=== PATIENT | female | born 1995 | race Caucasian/White ===

== ENCOUNTER 2020-02-26 20:13 | Observation (INO) | payer OTHER, SELFPAY ==
--- NOTE | 2020-02-26 20:13 | OBADM ---
This patient, Dedeee Parrish, admitted to the OB room Labor/Delivery/Recovery 106 for observation. Patient/family oriented to hospital policies and general routines including ID bracelet, bed and alarms, visiting hours, pain management, procedures, bathroom and other care routines, personal items, smoking policy, room service/diet, and visiting hours. Patient/Family are encouraged to report perceived risks to care and to ask questions if they do not understand what they are told or what they should do.
[2020-02-26 22:08] VITALS: BMI 25.2
--- NOTE | 2020-03-03 07:29 | PM.OBTRLD ---
OB - Triage/Final Diagnosis Visit Information Date of evaluation: 02/26/20 Reason for evaluation: threatened labor
== END 2020-02-26 22:28 | disposition home or self-care (01) ==
PROVIDERS: Admitting Provider Student in an Organized Health Care Education/Training Program; PCP Family Medicine; Visit Provider Student in an Organized Health Care Education/Training Program
DX: O47.03 False labor before 37 completed weeks of gestation, third trimester (principal); Z3A.36 36 weeks gestation of pregnancy
CPT/HCPCS: G0378; G0379

== ENCOUNTER 2020-03-05 02:24 | Observation (INO) | payer OTHER, SELFPAY ==
[2020-03-05 06:12] VITALS: BMI 25.5
--- NOTE | 2020-03-05 06:14 | OBADM ---
This patient, Deedee Parrish, admitted to the OB room Labor/Delivery/Recovery 107 for observation. Patient/family oriented to hospital policies and general routines including ID bracelet, bed and alarms, visiting hours, pain management, procedures, bathroom and other care routines, personal items, smoking policy, room service/diet, and visiting hours. Patient/Family are encouraged to report perceived risks to care and to ask questions if they do not understand what they are told or what they should do.
--- NOTE | 2020-03-05 06:22 | PC.NURSE ---
SEE OBIX FOR CHARTING
--- NOTE | 2020-03-18 13:08 | PM.OBTRLD ---
OB - Triage/Final Diagnosis Final Diagnosis (1) False labor: Code(s): O47.9 - False labor, unspecified Status: Acute
== END 2020-03-05 05:56 | disposition home or self-care (01) ==
PROVIDERS: Admitting Provider Obstetrics & Gynecology; PCP Family Medicine; Visit Provider Obstetrics & Gynecology
DX: O47.03 False labor before 37 completed weeks of gestation, third trimester (principal); Z3A.37 37 weeks gestation of pregnancy
CPT/HCPCS: G0378; G0379

== ENCOUNTER 2020-03-05 08:49 | Inpatient (IN) | payer OTHER, SELFPAY ==
[2020-02-19 14:32] VITALS: BMI 24.5
[2020-03-05] VITALS (62 sets, daily range): BP systolic 81–138; BP diastolic 51–93; PULSE 70–124; RESP 18; TEMP 36.6–37.1; O2SAT 100
[2020-03-05] MEDS: LACTATED RINGERS 1,000 ML 125 ML IV CONT ×2 (09:22→09:52)
[2020-03-05 09:25] LABS: Basophils Absolute Auto 0.1 K/mm3 (0.0-0.1); Basophils Percent Auto 0.4 % (0.2-1.2); Eosinophils Absolute Auto 0.1 K/mm3 (0-0.3); Eosinophils Percent Auto 0.9 % (0-4.4); Hematocrit 35.1 % (37.0-47.0); Immature Granulocyte Absolute 0.18 K/mm3 (0.00-0.031); Immature Granulocyte Percent A 1.4 % (0-0.5); Lymphocytes Absolute Auto 2.58 K/mm3 (0.9-3.2); Lymphocytes Percent Auto 20.1 % (18.3-44.2); Mean Corpuscular HGB Conc 34.2 g/dl (32-36); Mean Corpuscular Hemoglobin 28.3 pg (26-34); Mean Corpuscular Volume 82.8 fl (80-100); Mean Platelet Volume 10.1 fl (7.4-10.4); Monocytes Absolute Auto 0.8 K/mm3 (0.1-0.6); Monocytes Percent Auto 6.4 % (2.6-8.5); Neutrophils Absolute Auto 9.1 K/mm3 (1.3-6.7); Neutrophils Percent Auto 70.8 % (45.5-73.1); Platelet Count Result 325 k/mm3 (150-375); Red Blood Count 4.24 M/mm3 (4.2-5.4); Red Cell Distribution Width 13.6 % (11.5-14.5); White Blood Count 12.8 K/mm3 (4.5-10.0)
--- NOTE | 2020-03-05 09:27 | LDADM ---
This patient, Deedee Parrish, was admitted to Labor/Delivery/Recovery 107 on 03/05/20 at 08:49. Plans for labor, pain management and were discussed with patient. Patient/family oriented to hospital policies and general routines including ID bracelet, bed and alarms, visiting hours, pain management, procedures, bathroom and other care routines, personal items, smoking policy, room service/diet and guest tray routines, infant security routines, and visiting hours. Patient/Family are encouraged to report perceived risks to care and to ask questions if they do not understand what they are told or what they should do. See OBIX for further documentation.
--- NOTE | 2020-03-05 10:54 | WPDANESEPP ---
Anes - Eval Pre Procedure Procedure: labor epidural Date/Time: 03/05/20 10:54 Surgeon: Cole Preop Diagnosis: Pain during labor Pre Op Diagnosis: labor Patient Data Age: 24 Gender: F Height: 5 ft 7 in Weight: 71 kg Last Vital Signs Temp 36.7 C 03/05/20 09:30 Pulse 78 03/05/20 10:45 BP 115/68 03/05/20 10:45 Pulse Ox 100 03/05/20 10:39 Allergies Allergy/AdvReac Type Severity Reaction Status Date / Time No Known Allergies Allergy Verified 02/19/20 14:45 Home Medications Medication Instructions Recorded Confirmed Type PNV cmb#95-ferrous fumarate-FA 1 tablet PO BID 02/19/20 02/19/20 History [] Laboratory Tests 03/05/20 03/05/20 09:19 09:19 WBC 12.8 K/mm3 H K/mm3 (4.5-10.0) RBC 4.24 M/mm3 M/mm3 (4.2-5.4) Hgb 12.0 g/dL g/dL (12.0-15.0) Hct 35.1 % L % (37.0-47.0) MCV 82.8 fl fl (80-100) MCH 28.3 pg pg (26-34) MCHC 34.2 g/dl g/dl (32-36) RDW 13.6 % % (11.5-14.5) Plt Count 325 k/mm3 k/mm3 (150-375) MPV 10.1 fl fl (7.4-10.4) Immature Gran % (Auto) 1.4 % H % (0-0.5) Neut % (Auto) 70.8 % % (45.5-73.1) Lymph % (Auto) 20.1 % % (18.3-44.2) [place] % (Auto) 6.4 % % (2.6-8.5) Eos % (Auto) 0.9 % % (0-4.4) Baso % (Auto) 0.4 % % (0.2-1.2) Lymph # (Auto) 2.58 K/mm3 K/mm3 (0.9-3.2) [place] # (Auto) 0.8 K/mm3 H K/mm3 (0.1-0.6) Eos # (Auto) 0.1 K/mm3 K/mm3 (0-0.3) Baso # (Auto) 0.1 K/mm3 K/mm3 (0.0-0.1) Abs Immat Gran (auto) 0.18 K/mm3 H K/mm3 (0.00-0.031) Absolute Neuts (auto) 9.1 K/mm3 H K/mm3 (1.3-6.7) Absolute Nucleated RBC 0.0 K/mm3 K/mm3 (0.0-0.012) Nucleated RBC % 0.0 % % (0.0-0.2) RPR Pending : gestational age (YARIEL 03/21) Patient hx anesthesia problems: none Family hx anesthesia problems: none PMFSH Family History Family History Grandparent Diabetes mellitus Social History Social History Smoking status: Never smoker Substance use: current Other substance usage details: hx of mj Gender identity (if verbalized by the patient): Female Spiritual care concerns: No Exam Day of Procedure 03/05/20 10:54 Patient weight: normal Heart: regular rate and rhythm Lungs: clear to auscultation and normal air movement Airway: Mallampati scale class II Neurological: alert and oriented
[2020-03-05 11:20] LABS: Rapid Plasma Reagin Non-Reactive (NonReactive)
--- NOTE | 2020-03-05 12:36 | WPDOBADMIT ---
Obstetrics - Admit Note Admission Note: record reviewed. Additions to the history and/or subsequent changes in the physical findings follow. 24 y/o at 37 5/7 weeks here with gush of clear fluid. SROM diagnosed on L&D. Complaining of contractions. GBS neg. AVSS NST reactive TOCO: contractions every 2-3 min ABD soft, nontender, gravid, vertex EXT nontender Cervix 7/80/0 A: IUP at term with SROM / labor. P: Anticipate .
[2020-03-05] MEDS: OXYTOCIN 30 UNITS/NS 500 ML 30 UNITS/500 ML BAG 999 UNITS IV CONT (15:32)
--- NOTE | 2020-03-05 15:46 | PM.OBPRVD ---
OB - Delivery Note Procedure Delivery date: 03/05/20 Procedure: Delivery monitor: external FHT and external uterine Route of delivery: Laceration description: Perineal - 2nd Degree Delivery repair: vicryl (3-0) Specimen: Yes (cord blood) Estimated blood loss (mL): 110 Anesthesia type: Epidural Disposition: PACU Complications: None Narrative: 24 y/o at 37 5/7 weeks gestation who presented to the hospital after a gush of clear fluid and contractions. SROM and labor were diagnosed. She received an epidural for pain control. Her labor progressed and her cervix dilated completely. She pushed with good effort and delivered the infant's head to the perineum. A loose nuchal cord was splinted and the body delivered. The cord was reduced. The nose and mouth were bulb suctioned. After a delay, the cord was clamped and cut. The was handed off the field. Cord blood was collected. The placenta delivered spontaneously and was grossly normal in appearance. The usual 3 vessel cord was noted. A second degree midline perineal laceration was sustained. This was reapproximated using 3 0 Vicryl in the usual layered fashion. Excellent hemostasis resulted as did excellent reapproximation of the normal anatomy. Needle and instrument counts were correct. The patient was taken to recovery room in stable condition. The went to the nursery in stable condition. I was present and scrubbed for the entire delivery. [place] Baby Date of : 03/05/20 Time of : 15:28 Weeks of gestation at delivery: 37 gender: Female Weight (pounds): 5 Weight (ounces): 15 position: Left Occiput Anterior Placenta delivery description: Spontaneous cord vessel description: 3 Vessels and Nuchal Cord score one minute: 9 score five minutes: 9
--- NOTE | 2020-03-05 15:48 | P.DS_ITS ---
DS: Admitting Diagnosis Admitting Diagnosis Admitting Diagnosis: SROM Labor at term DS: Discharge Diagnosis Discharge Diagnosis (1) (normal spontaneous vaginal delivery): Code(s): O80 - Encounter for full-term uncomplicated delivery Status: Acute OB - DS: Summary OB Procedures : None OB Procedures Intrapartum: Spontaneous Vag Delivery OB Procedures: : None DS: Data Data Completed and Pending Labs on day of discharge: Labs from last 24 hours 03/05/20 03/05/20 03/05/20 09:19 09:19 09:19 WBC 12.8 H RBC 4.24 Hgb 12.0 Hct 35.1 L MCV 82.8 MCH 28.3 MCHC 34.2 RDW 13.6 Plt Count 325 MPV 10.1 Immature Gran % (Auto) 1.4 H Neut % (Auto) 70.8 Lymph % (Auto) 20.1 [place] % (Auto) 6.4 Eos % (Auto) 0.9 Baso % (Auto) 0.4 Lymph # (Auto) 2.58 [place] # (Auto) 0.8 H Eos # (Auto) 0.1 Baso # (Auto) 0.1 Abs Immat Gran (auto) 0.18 H Absolute Neuts (auto) 9.1 H Absolute Nucleated RBC 0.0 Nucleated RBC % 0.0 RPR Non-reactive Blood Type O Positive Antibody Screen Negative Discharge Plan Discharge Attending physician on discharge: Cole Discharging Clinician: Israel Galvan Patient Disposition: Home, Self-Care Activity: pelvic rest Diet: regular Discharge Instructions: Call or return if temperature above 100.4? F, increased abdominal pain, increased vaginal bleeding or any new problems. Stand Alone Forms: General Discharge Information Follow-up/Referrals: Israel Galvan MD [Physician] - 6 Weeks Discharge Medications: New ibuprofen 600 mg tablet 600 mg PO Q6H PRN (Reason: cramps) Qty: 30 RF: 0 ferrous sulfate 325 mg (65 mg iron) tablet 325 mg PO DAILY Qty: 30 RF: 0 No Action PNV cmb#95-ferrous fumarate-FA [] 28 mg iron- 800 mcg Tablet 1 tablet PO BID RF: 0 Date of admission: 03/05/20 08:49 Primary Care Provider: Lizette,Brook Admitting Provider: Israel Galvan Attending physician on admission: Israel Galvan
[2020-03-05] MEDS: OXYTOCIN 30 UNITS/NS 500 ML 30 UNITS/500 ML BAG 125 UNITS IV CONT ×2 (15:54→16:11)
[2020-03-05] MEDS: WITCH HAZEL 40 PADS 1 PAD TOPICAL (17:42)
[2020-03-05] MEDS: BENZOCAINE 20% AER SPR (*SP) 56 GM CAN 1 SPRAY TOPICAL (17:42)
--- NOTE | 2020-03-05 19:01 | PC.NURSE ---
Patient transferred to post room #281 via wheel chair. Support person present. Oriented to unit, room, information board, rooming in, admission packet and security measures. Patient verbalizes understanding.
[2020-03-05] MEDS: IBUPROFEN 600 MG TABLET PO (22:54)
[2020-03-06 04:49] LABS: Hematocrit 29.5 % (37.0-47.0); Hemoglobin 9.9 g/dL (12.0-15.0)
[2020-03-06 08:00] VITALS: BP 111/64; PULSE 70; RESP 16; TEMP 36.5; O2SAT 99
--- NOTE | 2020-03-06 08:12 | WPDANLDPN2 ---
Anes-Prog Note L&D Date/Time: 03/06/20 08:12 Comfortable throughout: labor and delivery Neuraxial method: epidural Epidural/Spinal procedure site: clean & non-tender Neuro status: Neuro function grossly intact. Cardiovascular status: normal Respiratory status: normal Airway patency: baseline Mental status: baseline Post-Op hydration status: normal Vital Signs: Last Vital Signs Temp 37.1 C 03/05/20 19:15 Pulse 90 03/05/20 19:15 Resp 18 03/05/20 19:15 BP 108/70 03/05/20 19:15 Pulse Ox 100 03/05/20 19:15 Pain score (VAS): 2 I/O: Intake & Output 03/05/20 03/06/20 03/06/20 23:59 07:59 15:59 Intake Total 2500 Output Total 50 Balance 2450 Patient feedback: Patient satisfied with anesthetic care.
[2020-03-06] MEDS: DOCUSATE SODIUM 100 MG CAPSULE PO ×2 (09:18→18:22)
[2020-03-06] MEDS: IBUPROFEN 600 MG TABLET PO ×2 (09:18→18:21)
[2020-03-06] MEDS: POLYSACCHARIDE IRON COMPLEX 150 MG CAPSULE PO ×2 (09:18→18:22)
[2020-03-06] MEDS: MULTIVIT/MIN/PREN/FOL AC/IRON TABLET 1 TAB PO (09:18)
--- NOTE | 2020-03-06 11:39 | PM.OBPNVD ---
OB - PN: Subj Subjective Date/time seen: 03/06/20 11:39 Narrative: Pain OK. Would like to go home. OB - PN: Obj Data Labs CBC & Chem 7: 03/06/20 03:28 Labs: Laboratory Results - last 24 hr 03/06/20 03:28 Hgb 9.9 L Hct 29.5 L OB - PN A/P Plan Comments: A: PPD#1, doing well. P: Home to f/u 6 weeks. Exam Psych: Other: AVSS ABD soft, nontender, fundus firm EXT nontender
[2020-03-06 19:18] VITALS: BP 110/65; PULSE 77; RESP 18; TEMP 36.6; O2SAT 100
[2020-03-06] MEDS: TETANUS,DIPHTHERIA,AC PERTUSSIS ADULT (0.5 ML) BOOSTRIX IM (19:18)
--- NOTE | 2020-03-07 07:00 | PC.NURSE ---
Patient instructed to view the discharge video Mother & Baby Care, The First Two Weeks online. Patient was given the opportunity and encouraged to ask questions. Patient verbalized understanding of information shared and has been given the mother/baby guide for home reference.
[2020-03-07 07:40] VITALS: BP 120/65; PULSE 67; RESP 16; TEMP 36.8
[2020-03-07] MEDS: IBUPROFEN 600 MG TABLET PO (08:15)
[2020-03-07] MEDS: POLYSACCHARIDE IRON COMPLEX 150 MG CAPSULE PO (08:15)
[2020-03-07] MEDS: MULTIVIT/MIN/PREN/FOL AC/IRON TABLET 1 TAB PO (08:15)
[2020-03-07] MEDS: DOCUSATE SODIUM 100 MG CAPSULE PO (08:15)
--- NOTE | 2020-03-07 10:00 | PM.OBPNVD ---
OB - PN: Subj Subjective Date/time seen: 03/07/20 10:00 Narrative: Pain OK. Would like to go home. OB - PN: Obj Data Labs CBC & Chem 7: 03/06/20 03:28 OB - PN A/P Plan Comments: A: PPD#2, doing well. P: Home to f/u 6 weeks. Exam Psych: Other: AVSS ABD soft, nontender, fundus firm EXT nontender
--- NOTE | 2020-03-07 10:30 | PC.NURSE ---
Mother verbalizes she is able to independently latch with appropriate positioning/alignment. She denies any nipple discomfort, is feeding as required and waking to feed if needed. Infant has had 2 effective feedings in the past 4 hours, and is currently meeting outcomes for weight, output, jaundice and feeding frequencies. Mother states she feels confident to continue effective at home. Reviewed transition to breast milk, signs of adequate intake, and engorgement/relief. Instructed to call ICP if intake/output less than required. Reviewed resources on the [facility] website and in the Mom/Baby guide. Mother has no further questions at this time.
[2020-03-08 09:29] VITALS: BP 113/77; PULSE 69; RESP 18; TEMP 36.9; O2SAT 100
== END 2020-03-07 11:19 | disposition home or self-care (01) | DRG 560 ==
LOC: ANHLDR 15:50 → ANHOB2 19:57
PROVIDERS: Admitting Provider Obstetrics & Gynecology; PCP Family Medicine; Visit Provider Obstetrics & Gynecology
DX: O69.82X0 Labor and delivery complicated by other cord entanglement, without compression, not applicable or unspecified (principal); Z37.0 Single live birth; Z3A.37 37 weeks gestation of pregnancy; O70.1 Second degree perineal laceration during delivery; Z23 Encounter for immunization
CPT/HCPCS: 36415; 85014; 85018; 85025; 86592; 86850; 86900; 86901; 90471; 90653; 90715; A9270; G0008; G0378; G0379; J2590; J2795; J7120